=== PATIENT | male | born 1955 | race Caucasian/White ===

== ENCOUNTER 2022-02-16 16:55 | Emergency (ER) | payer MEDICARE, OTHER ==
[2022-02-16] MEDS ORDERED: Ondansetron 4 MG/2 ML SDV IVPUSH ONE (17:23)
[2022-02-16] MEDS ORDERED: Meclizine 25 MG Tab PO ONE (17:23)
[2022-02-16] MEDS ORDERED: Sodium Chloride 0.9% 1,000 ML IV ONE (17:23)
[2022-02-16 18:05] LABS: BLOOD UREA NITROGEN,BUN 22 mg/dL (7.0-18.0); CARBON DIOXIDE,CO2 25.7 mmol/L (21.0-32.0); CHLORIDE,CL 102 mmol/L (98-107); GLUCOSE RANDOM 118 mg/dL (74-106); POTASSIUM,K 3.6 mmol/L (3.5-5.1); SODIUM,NA 139 mmol/L (136-148)
[2022-02-16] MEDS ORDERED: Metoclopramide 10 MG/2 ML SDV IVPUSH ONE (18:36)
[2022-02-16] MEDS ORDERED: dimenhyDRINATE 50 MG/ML SDV IVPUSH ONE (18:36)
[2022-02-16] MEDS ORDERED: dimenhyDRINATE 50 MG Tab PO ONE (18:58)
[2022-02-16 19:34] VITALS: BP 198/115; PULSE 80
== END 2022-02-16 19:45 | disposition home or self-care (01) ==
LOC: MW.ED 16:55
DX: R27.0 Ataxia, unspecified (principal); R11.2 Nausea with vomiting, unspecified; K21.9 Gastro-esophageal reflux disease without esophagitis; I10 Essential (primary) hypertension; E03.9 Hypothyroidism, unspecified; Z79.899 Other long term (current) drug therapy
CPT/HCPCS: 36415; 70450; 80053; 83735; 85025; 96374; 96375; 99284; A9270; J2405; J2765; J7030